=== PATIENT | female | born 1950 | race Two or more races ===

== ENCOUNTER → 2025-01-12 | Emergency (ER) | payer OTHER ==
[~2025-01-12] VITALS: Ht 170.2 cm; Wt 124.7 kg
[~2025-01-12] MED LIST: MEPERIDINE HCL 25 MG/ML AMPUL IM ONE; MONTELUKAST SODI4 M1 PO; ZESTRIL5 MG PO
[2025-01-12 11:54] LABS: HEMATOCRIT 43.3 % (36.0-45.00); HEMOGLOBIN 15.8 g/dL (12.0-15.00); MEAN CELL VOLUME 87.3 fL (80.00-100.00); MEAN CORPUSCULAR HEMOGLOBIN 31.9 pg (27.00-32.0); MEAN CORPUSCULAR HGB CONC 36.5 g/dl (32.0-36.0); PLATELET COUNT 165 K/uL (150-450); RED BLOOD COUNT 4.95 M/uL (4.00-6.00); RED CELL DISTRIBUTION WIDTH 13.3 % (11.5-14.5)
[2025-01-12 12:09] LABS: INR 1.05; PARTIAL THROMBOPLASTIN TIME 25.9 SECONDS (22.0-34.0); PROTHROMBIN TIME 11.4 SECONDS (9.0-11.5)
[2025-01-12 12:15] LABS: ALBUMIN 3.2 gm/dL (3.4-5.0); BILIRUBIN TOTAL 0.61 mg/dL (0.3-1.2); CALCIUM 9.7 mg/dL (8.5-10.1); CREATININE SERUM 0.83 mg/dL (0.55-1.02); GFR 66.84; GLOBULINA 3.9 G/DL (2.4-3.5); POTASSIUM 4.21 mEq/L (3.5-5.1); TOTAL PROTEIN 7.1 gm/dL (6.4-8.2)
[2025-01-12 13:18] LABS: PH,URINE 5.5 (5.0-8.0); URINE APPEARANCE Cloudy; URINE BILIRRUBIN Negative (NEGATIVE); URINE BLOOD Negative; URINE COLOR Dark Yellow; URINE GLUCOSE Negative (NEGATIVE); URINE KETONE 15 (NEGATIVE); URINE LEUKOCYTE Negative; URINE NITRATE Negative; URINE PROTEIN Negative (NEGATIVE)
[2025-01-12 13:28] LABS: URINE CAST 1.47 uL (0.0-1.40); URINE EPITHELIAL CELLS 59.5 uL (0.0-38.8); URINE WBC 2.5 uL (0.0-23.2)
[2025-01-12 13:48] LABS: URINE CRYSTALS MODERATE /HPF
== END | disposition left against medical advice (07) ==
LOC: ER 10:13
PROVIDERS: Emergency Medicine
DX: R10.9 Unspecified abdominal pain (principal)
CPT/HCPCS: 36415; 74022; 96372; 99283; J3490

== ENCOUNTER 2025-01-14 12:16 | Outpatient (CLI) | payer OTHER ==
[~2025-01-14 12:16] MED LIST changes: -MEPERIDINE HCL 25 MG/ML AMPUL IM ONE
== END 2025-01-14 12:20 | disposition home or self-care (01) ==
LOC: TOM 12:16
PROVIDERS: ATTEND General Practice
DX: K46.0 Unspecified abdominal hernia with obstruction, without gangrene (principal)
CPT/HCPCS: 74177; Q9965